=== PATIENT | male | born 1960 ===

== ENCOUNTER 2017-06-05 08:16 | Emergency (ER) | payer OTHER ==
[2017-06-05 08:33] VITALS: BP 115/69; PULSE 102; RESP 19; TEMP 97; O2SAT 98
--- NOTE | 2017-06-05 09:15 | ED PDOC ---
HPI: CCC, URI, Sore Throat Time Seen by Provider: 06/05/17 09:08 Chief Complaint (Nursing): ENT Problem History Per: Patient Onset/Duration Of Symptoms: Days (2) Current Symptoms Are (Timing): Still Present Location Of Pain: Throat Associated Symptoms: Fever, Sore Throat, Cough Severity: Moderate Pain Scale Rating Of: 3 Additional Complaint(s): Sore throat fever and body aches x 2 days. Assoc with cough. No SOB Past Medical History Vital Signs: Last Vital Signs Temp 97 F L 06/05/17 08:27 Pulse 102 H 06/05/17 08:27 Resp 19 06/05/17 08:27 BP 115/69 06/05/17 08:27 Pulse Ox 98 06/05/17 08:27 - Medical History PMH: Diabetes, HTN, Hypercholesterolemia Denies: HIV, Chronic Kidney Disease - Surgical History Surgical History: Endoscopy - Family History Family History: States: Unknown Family Hx - Home Medications Home Medications: Ambulatory Orders Medication Instructions Recorded Sitagliptin Phos/Metformin HCl 1 tab PO DAILY #30 tablet 07/11/16 [Janumet 50-1,000 mg Tablet] Valsartan [Diovan] 1 tab PO DAILY #30 tab 07/11/16 amLODIPine [Norvasc] 5 mg PO DAILY #30 tab 07/11/16 Azithromycin [Zithromax] 250 mg PO DAILY #6 tab 06/05/17 - Allergies Allergies/Adverse Reactions: Allergies Allergy/AdvReac Type Severity Reaction Status Date / Time No Known Allergies Allergy Verified 06/05/17 08:26 Review of Systems Constitutional: Positive for: Fever ENT: Positive for: Throat Pain Respiratory: Positive for: Cough Physical Exam - Physical Exam Appears: Positive for: Non-toxic, No Acute Distress Skin: Positive for: Normal Color, Warm, DRY ENT: Positive for: Pharyngeal Erythema, Tonsillar Swelling. Negative for: Tonsillar Exudate Neck: Positive for: Normal, Painless ROM Cardiovascular/Chest: Positive for: Regular Rate, Rhythm Respiratory: Positive for: CNT, Normal Breath Sounds - ECG O2 Sat by Pulse Oximetry: 98 Disposition - Clinical Impression Clinical Impression: Tonsillitis - Patient ED Disposition Is Patient to be Admitted: No - Disposition Disposition: Routine/Home Disposition Time: 09:15 Condition: FAIR Prescriptions: Azithromycin [Zithromax] 250 mg PO DAILY #6 tab Instructions: Tonsillitis (ED)
== END 2017-06-05 09:40 | disposition home or self-care (01) ==
LOC: H.ER 08:16
DX: J02.0 Streptococcal pharyngitis (principal)